=== PATIENT | male | born 1980 | race Caucasian/White ===

== ENCOUNTER 2018-02-23 01:06 | Emergency (ER) | payer SELFPAY ==
[2018-02-23 06:27] VITALS: BP 113/61
--- NOTE | 2018-03-05 01:15 | ED ---
Gianfranco Wilkins Elizabeth, scribed for Uday Gamino MD on 02/23/18 at 0115 . Substance Abuse/Use - HPI Summary HPI Summary: This patient is a 37 year old M BIBA to [facility] with a chief complaint of heroin overdose that occurred earlier tonight. The patient was found unresponsive in the shower after consuming alcohol and doing heroin. The patient reports that he cannot recall when he took the heroin and says he only uses very rarely. Police gave the patient Narcan prior to arrival. EMS note that the patient has been shaking uncontrollably. EMS is unsure how long the patient was unresponsive on the floor of the shower. Pt denies any pain, just c/o feeling very cold. - History Of Current Complaint Chief Complaint: EDOverdose Stated Complaint: OVERDOSE Hx Obtained From: Patient, EMS Ingestion History: Type/Name Of Drug - EtOH, Heroin Timing Of Abuse: Recent Cessation For A Period Of Severity Initially: Moderate Severity Currently: Moderate Character: Lethargic Aggravating Factor(s): Nothing Alleviating Factor(s): Nothing - Allergies/Home Medications Allergies/Adverse Reactions: Allergies Allergy/AdvReac Type Severity Reaction Status Date / Time amoxicillin [From Augmentin] Allergy Anaphylatic Verified 02/23/18 01:17 Shock clavulanic acid Allergy Anaphylatic Verified 02/23/18 01:17 [From Augmentin] Shock PMH/Surg Hx/FS Hx/Imm Hx Opthamlomology History: Denies: Hx Legally Blind EENT History: Denies: Hx Deafness Psychiatric History: Reports: Hx Substance Abuse - heroin - Family History Known Family History: Positive: Unknown Review of Systems Positive: Chills Negative: Drainage Negative: Epistaxis Negative: Cough Negative: Vomiting Musculoskeletal: Other - uncontrollable shaking All Other Systems Reviewed And Are Negative: Yes Physical Exam - Summary Physical Exam Summary: Appearance: Well-appearing, Well-nourished, lying in bed comfortably, very tremulous Skin: Warm, dry, no obvious rash Eyes: sclera anicteric, no conjunctival pallor ENT: mucous membranes moist, pharynx appears normal Neck: Supple, nontender Respiratory: Clear to auscultation, no signs of respiratory distress Cardiovascular: Normal S1, S2. No murmurs. Normal distal pulses in tibial and radial bilaterally. Abdomen: Soft, nontender, normal active bowel sounds present Musculoskeletal: Strength/ROM Intact, shivering uncontrollably Neurological: A&Ox3, awake and alert, mentation is normal, speech is fluent and appropriate Psychiatric: affect is normal, does not appear anxious or depressed. Answers questions appropriately Triage Information Reviewed: Yes Vital Signs Reviewed: Yes Course/Dx - Course Assessment/Plan: This is a 37-year-old man brought in after an overdose of inhaled opioids. He was found unresponsive with agonal respirations. First responders gave him intranasal Narcan 2. He subsequently received another 1 or 2 doses of IV Narcan. After all this he finally did improve his level of consciousness, and he arrives here awake and alert. He was down in the shower on cold concrete for an unknown period of time before being discovered by a friend. Currently he is very cold and shivering. He will be warmed and observed. There are no other concerns for coingestions. - Diagnoses Provider Diagnoses: Opioid overdose Discharge - Sign-Out/Discharge Documenting (check all that apply): Discharge/Admit/Transfer - Discharge Plan Condition: Good Disposition: HOME Patient Education Materials: Opioid Overdose (ED) - Billing Disposition and Condition Condition: GOOD Disposition: HOME The documentation as recorded by the Gianfranco lopez Elizabeth accurately reflects the service I personally performed and the decisions made by me, Uday Gamino MD.
== END 2018-02-23 06:37 | disposition home or self-care (01) ==
LOC: ED 01:06
DX: T40.2X1A Poisoning by other opioids, accidental (unintentional), initial encounter (principal); R68.83 Chills (without fever); Y92.9 Unspecified place or not applicable; Z88.0 Allergy status to penicillin
CPT/HCPCS: 99283